=== PATIENT | female | born 1995 | race Hispanic/Latino ===

== ENCOUNTER 2019-05-26 20:14 | Inpatient (IN) | payer OTHER, SELFPAY ==
[2019-05-26 21:23] LABS: #Eosinphils 0.1 thou/uL (0.0-0.7); #Lymphocytes 1.2 thou/uL (1.20-3.40); #Monocytes 1.1 thou/uL (0.11-0.59); #Neutrophils 10.8 thou/uL (1.40-6.50); %Basophils 0.2 % (0.0-1.0); %Eosinophils 0.9 % (0.0-10.0); %Lymphocytes 9.3 % (21.0-51.0); %Monocytes 8.2 % (0.0-10.0); %Neutrophils 81.4 % (42.0-75.0); Hemoglobin 10.7 g/dL (12.0-16.0); Mean Corpuscular HGB CONC 34.6 g/dL (32.0-36.0); Mean Corpuscular Volume 92.3 fL (78.0-98.0); Mean Platelet Volume 7.9 fL (7.4-10.4); Platelet Count 196 thou/uL (130-400); RBC Distribution Width 12.1 % (11.5-14.5); Red Blood Cell (RBC) Count 3.35 mill/uL (4.20-5.40); White Blood Cell (WBC) Count 13.3 thou/uL (4.8-10.8)
--- NOTE | 2019-05-26 21:42 | RAD ---
EXAM: Single view of the chest HISTORY: Fever COMPARISON: None FINDINGS: Single view of the chest shows a normal sized cardiomediastinal silhouette. There is no antonette dence of consolidation, mass, or pleural effusion. The bones are unremarkable. IMPRESSION: No evidence of acute cardiopulmonary disease
[2019-05-26 21:48] LABS: ALT (SGPT) 22 U/L (8-55); AST (SGOT) 18 U/L (5-34); Alkaline Phosphatase 135 U/L (40-110); Anion Gap 13 mmol/L (10-20); BUN (Urea Nitrogen) 6 mg/dL (7.0-18.7); Bilirubin, Total 0.9 mg/dL (0.2-1.2); Calc. Creatinine Clearance 0 mL/min (70-130); Calcium 9.4 mg/dL (7.8-10.44); Carbon Dioxide 22 mmol/L (22-29); Chloride 101 mmol/L (98-107); Estimated GFR-MDRD Greater than 90; Globulin 3.7 g/dL (2.4-3.5); Glucose 90 mg/dL (70-105); Potassium 3.8 mmol/L (3.5-5.1); Protein, Total 7.7 g/dL (6.0-8.3); Sodium 132 mmol/L (136-145)
[2019-05-26] MEDS ORDERED: Acetaminophen 325 MG TAB ONE (21:55)
[2019-05-26 23:06] LABS: Bacteria/HPF 3+ HPF (None Seen); Bilirubin Negative (Negative); Blood, Urine Negative (Negative); Clarity Turbid (Clear); Glucose, Urine (Dipstick) Normal (Negative); Leukocyte 500 Leu/uL (Negative); Nitrite 1+ (Negative); Protein, Urine (Dipstick) Negative (Neg-Trace); Renal Epithelial 0-3 HPF (None Seen); Urobilinogen Normal mg/dL (Less than 2); WBC/HPF 21-50 HPF (0-3)
[2019-05-26 23:09] LABS: RBC/HPF 0-3 HPF (0-3)
[2019-05-26] MEDS ORDERED: cefTRIAXone\\ROCEPHIN 1 GM VIAL ONE (23:30)
--- NOTE | 2019-05-27 01:04 | PDOC.FPROB ---
FMR OB H&P: HPI - History of Present Illness Chief Complaint: fever Indentification: @ 23.3 WGA by 21.1 week sono History of Present Illness: The patient is a 23YO G? @ ~23.3 WGA by a 21.1 week US with no significant PMH who presented to the ED with a CC of subjective fever with associated N/V & myalgias/arthralgias that has been ongoing since Wednesday, 05/24. Also reports some associated central upper abdominal pain that she describes as aching in nature that comes and goes and was not present at the time of exam. Denies any vaginal bleeding, LOF, vaginal itching, abnormal discharge, dysuria, hematuria or isolated back pain. She denies any chest pain, SOB, cough, congestion, sore throat, or diarrhea. Denies any recent sick contacts or recent travel outside the country. Endorses regular movement. Primary Care Physician: Dr. Dean Worley FMR OB H&P: History - Past Medical History PMH: None - OB History OB History: primagravida - [facility] History [facility] [employer] History: No h/o STI & reports never having had a pap smear - Surgical History Sx History: None - Social History Social History: No TAD - Family History Family History: non-contributory FMR OB H&P: Medications - Current Allergies/Adverse Reactions: Allergies Allergy/AdvReac Type Severity Reaction Status Date / Time No Known Drug Allergies Allergy Unverified 05/27/19 02:11 FMR OB H&P: ROS - Review of Systems General: reports: fever/chills, weight/appetite/sleep changes Eyes: denies: eye pain, vision changes ENT: denies: nasal congestion, rhinorrhea, sore throat Cardiovascular: denies: chest pain, palpitation Respiratory: denies: cough, congestion Gastrointestinal: reports: abdominal pain, nausea, vomiting. denies: diarrhea Genitourinary (Female): denies: dysuria, hematuria, vaginal discharge, vaginal bleeding Musculoskeletal: reports: arthritis/arthralgias Neurologic: reports: headache. denies: syncope Integumentary: denies: rash, lesions FMR OB H&P: Vital Signs - Maternal Vital signs: BP: 113/60 HR: 101 RR:20 O2 sat: 100% on RA temp: 97.7F Wt: 53kg FMR OB H&P: Physical Exam - Physical Exam General: NAD, awake, alert and oriented HEENT: normocephalic and atraumatic, MMM, conjunctiva clear, grossly normal vision, grossly normal hearing, oropharynx clear Neck: supple, FROM Heart: normal S1/S2, no murmurs/rubs/gallops, pulses present, no edema, other ( tachycardic but regular rhythm) General: CTAB, no respiratory distress, good air movement, no rales/rhonchi, no wheezing Abdomen: gravid, non-tender, bowel sound present Musculoskeletal: normal gait and station, FROM in all four extremities Neurological: cranial nerves II through XII intact, sensation to pain,touch and proprioception grossly normal, no focal deficit Skin: no rash, good tugor Lymphatic: no unusual bruising or bleeding, no purpura, no petechia Psychiatric: intact recent and remote memory, good judgement and insight, normal mood and affect FMR OB H&P: Results - Labs Lab results: Laboratory Results - last 24 hr 05/26/19 05/26/19 05/26/19 21:15 21:15 21:15 WBC 13.3 H RBC 3.35 L Hgb 10.7 L Hct 31.0 L MCV 92.3 MCH 32.0 H MCHC 34.6 RDW 12.1 Plt Count 196 MPV 7.9 Neutrophils % 81.4 H Lymphocytes % 9.3 L Monocytes % 8.2 Eosinophils % 0.9 Basophils % 0.2 Neutrophils # 10.8 H Lymphocytes # 1.2 Monocytes # 1.1 H Eosinophils # 0.1 Basophils # 0.0 Sodium 132 L Potassium 3.8 Chloride 101 Carbon Dioxide 22 Anion Gap 13 BUN 6 L Creatinine 0.64 Estimated GFR (MDRD) Greater than 90 Glucose 90 Lactic Acid 0.9 Calcium 9.4 Total Bilirubin 0.9 AST 18 ALT 22 Alkaline Phosphatase 135 H Serum Total Protein 7.7 Albumin 4.0 Globulin 3.7 H Albumin/Globulin Ratio 1.1 L Urine Color Urine Clarity Urine pH Ur Specific [place] Urine Protein Urine Glucose (UA) Urine Ketones Urine Blood Urine Nitrite Urine Bilirubin Urine Urobilinogen Ur Leukocyte Esterase Urine RBC Urine WBC Ur Squamous Epith Cells Ur Renal Epithelial Cell Urine Bacteria 05/26/19 22:42 WBC RBC Hgb Hct MCV MCH MCHC RDW Plt Count MPV Neutrophils % Lymphocytes % Monocytes % Eosinophils % Basophils % Neutrophils # Lymphocytes # Monocytes # Eosinophils # Basophils # Sodium Potassium Chloride Carbon Dioxide Anion Gap BUN Creatinine Estimated GFR (MDRD) Glucose Lactic Acid Calcium Total Bilirubin AST ALT Alkaline Phosphatase Serum Total Protein Albumin Globulin Albumin/Globulin Ratio Urine Color Light-Yellow Urine Clarity Turbid A Urine pH 7.0 Ur Specific [place] 1.005 Urine Protein Negative Urine Glucose (UA) Normal Urine Ketones 10 A Urine Blood Negative Urine Nitrite 1+ A Urine Bilirubin Negative Urine Urobilinogen Normal Ur Leukocyte Esterase 500 A Urine RBC 0-3 Urine WBC 21-50 A Ur Squamous Epith Cells 7-10 A Ur Renal Epithelial Cell 0-3 A Urine Bacteria 3+ A FMR OB H&P: A/P - Problem List (1) Pyelonephritis affecting in second trimester Current Visit: Yes Status: Acute Code(s): O23.02 - INFECTIONS OF KIDNEY IN , SECOND TRIMESTER (2) Current Visit: Yes Status: Acute Qualifiers: Weeks of gestation: 23 weeks Qualified Code(s): Z3A.23 - 23 weeks gestation of Disposition: 23YO GP @ ~22.3 WGA by a 21.1 week sono who presented to the ED for evaluation for fever w/ associated N/V, myalgias & abdominal pain who was found to have suspected pyelonephritis. Complicated UTI vs. pyelonephritis: - Patient with a Tmax of 101F & tachycardic into the 110s upon arrival with a WBC of 13.3 and a UA significant for 1+ nitrite, 500 LE, 25-50 WBCs & 3+ bacteria. No CVA tenderness on exam but systemic symptoms along with UA make pyelonephritis a likely possibility. Urine & blood cultures pending as well as a procal. Initial lactate WNLs at 0.9. - s/p 650 mg PO tylenol and 1g Rocephin in the ED. Will continue rocephin pending urine culture & sensitivities. Continue tylenol PRN for pain/fever. - s/p 1L NS in the ED as well. Will continue mIVFs. - zofran PRN for N/V. Moderate dehydration: - Tachycardic with ketonuria on admission. s/p 1L NS in the ED. Will continue mIVFs w/ NS @ 100mL/hr on the floor until tolerating PO well. Will encourage adequate PO hydration as well. Hyponatremia: - Na of 132 on admission. Likely 2/2 decreased PO intake. Will continue to monitor. sIUP @ 22 WGA: - Continue PNVs. Anemia in : - Hgb 10.7 on admission. Will continue PNVs but also start PO iron. Dispo: Admit to [facility]/Women's unit for continued IV antibiotic therapy with plans to transition to appropriate PO therapy pending culture sensitivities. Discussion: Date/Time: 05/27/19103 This H&P was discussed with Dr. Camille Delacruz who agrees with the above documentation and plan. Addendum - Attending - Attending Attestation Date/Time: 05/27/19629 I personally evaluated the patient and discussed the management with Dr. Putnam. I agree with the History, Examination, Assessment and Plan documented above.
[2019-05-27] MEDS ORDERED: Lactated Ringer's 1,000 ML IV SCH (01:15)
[2019-05-27] MEDS ORDERED: Calcium Carbonate 500 MG ChewTAB PO PRN (01:27)
[2019-05-27] MEDS ORDERED: Acetaminophen 325 MG TAB PO PRN ×2 (01:27→07:27)
[2019-05-27] MEDS ORDERED: Ondansetron ODT 4 MG TAB PO PRN (01:27)
[2019-05-27] MEDS ORDERED: Ondansetron PF 4 MG/2 ML Vial IVP PRN (01:27)
[2019-05-27] MEDS ORDERED: Acetaminophen 650 MG Suppository PR PRN (01:27)
[2019-05-27] MEDS ORDERED: Polyethylene Glycol 3350 17 GM Packet PO PRN (01:34)
[2019-05-27] MEDS ORDERED: Docusate 100 MG CAP PO PRN (01:34)
[2019-05-27] MEDS: Sodium Chloride 0.9% 1,000 ML IV SCH ×2 (03:13→13:29)
[2019-05-27 03:34] VITALS: BMI 22.8
[2019-05-27 06:52] LABS: #Eosinphils 0.1 thou/uL (0.0-0.7); #Monocytes 1.4 thou/uL (0.11-0.59); #Neutrophils 7.9 thou/uL (1.40-6.50); %Basophils 0.2 % (0.0-1.0); %Eosinophils 0.8 % (0.0-10.0); %Lymphocytes 17.8 % (21.0-51.0); %Monocytes 12.1 % (0.0-10.0); %Neutrophils 69.1 % (42.0-75.0); Hemoglobin 9.8 g/dL (12.0-16.0); Mean Corpuscular HGB CONC 35.3 g/dL (32.0-36.0); Mean Corpuscular Volume 93.4 fL (78.0-98.0); Mean Platelet Volume 8.1 fL (7.4-10.4); Platelet Count 161 thou/uL (130-400); RBC Distribution Width 12.2 % (11.5-14.5); Red Blood Cell (RBC) Count 2.96 mill/uL (4.20-5.40); White Blood Cell (WBC) Count 11.4 thou/uL (4.8-10.8)
[2019-05-27 07:06] LABS: ALT (SGPT) 17 U/L (8-55); AST (SGOT) 15 U/L (5-34); Albumin 3.6 g/dL (3.5-5.0); Alkaline Phosphatase 121 U/L (40-110); Anion Gap 13 mmol/L (10-20); BUN (Urea Nitrogen) 4 mg/dL (7.0-18.7); Bilirubin, Total 0.7 mg/dL (0.2-1.2); Calc. Creatinine Clearance 133 mL/min (70-130); Calcium 8.9 mg/dL (7.8-10.44); Carbon Dioxide 20 mmol/L (22-29); Chloride 105 mmol/L (98-107); Estimated GFR-MDRD Greater than 90; Globulin 3.4 g/dL (2.4-3.5); Glucose 78 mg/dL (70-105); Potassium 3.8 mmol/L (3.5-5.1); Sodium 134 mmol/L (136-145)
[2019-05-27] MEDS: Acetaminophen 500 MG TAB PO PRN ×2 (08:15→17:07)
[2019-05-27] MEDS ORDERED: FLU VACC QS2019-20(6MOS UP)/PF 60 MCG/0.5 ML SYRINGE IM ONE (09:00)
[2019-05-27] MEDS: Prenatal Vitamin 1 TAB PO SCH (09:22)
[2019-05-27] MEDS: Ferrous Fumarate 324 MG TAB PO SCH (09:22)
[2019-05-27] MEDS ORDERED: Sodium Chloride 0.9% 10 ML ONE (22:52)
[2019-05-27] MEDS: cefTRIAXone\\ROCEPHIN 2 GM in Sodium Chloride 0.9% 100 ML IVPB SCH (23:08)
[2019-05-27] MEDS ORDERED: cefTRIAXone\\ROCEPHIN 1 GM in Sodium Chloride 0.9% 100 ML IVPB SCH (23:30)
[2019-05-28] MEDS: Sodium Chloride 0.9% 1,000 ML IV SCH ×2 (01:05→11:49)
[2019-05-28] MEDS: Acetaminophen 500 MG TAB PO PRN ×3 (04:14→21:00)
[2019-05-28] MEDS: Prenatal Vitamin 1 TAB PO SCH (08:31)
[2019-05-28] MEDS: Ferrous Fumarate 324 MG TAB PO SCH (08:33)
--- NOTE | 2019-05-28 15:33 | PDOC.EVN ---
Event Note - Event Note Event Note: OBGYN Slot Shift Supervisor: I was just called about this patient. I was asked about her discharge. This patient is not under OBGYN Hospitalist care. I have confirmed with Dr Worley that he is the physician taking care of this patient
[2019-05-28] MEDS ORDERED: Sodium Chloride 0.9% 10 ML ONE (22:49)
[2019-05-28] MEDS: cefTRIAXone\\ROCEPHIN 2 GM in Sodium Chloride 0.9% 100 ML IVPB SCH (22:56)
[2019-05-29] MEDS: Ferrous Fumarate 324 MG TAB PO SCH (08:46)
[2019-05-29] MEDS: Prenatal Vitamin 1 TAB PO SCH (08:46)
[2019-05-29] MEDS: Acetaminophen 500 MG TAB PO PRN (12:04)
[2019-05-29 12:16] VITALS: BP 116/59; TEMP 98.4
== END 2019-05-29 13:40 | disposition home or self-care (01) | DRG 832 ==
LOC: ERS 20:14 → 3SW 05-27 00:42
PROVIDERS: ADMIT Obstetrics & Gynecology; ATTEND Obstetrics & Gynecology
DX: O23.02 Infections of kidney in pregnancy, second trimester (principal); E87.1 Hypo-osmolality and hyponatremia; O99.282 Endocrine, nutritional and metabolic diseases complicating pregnancy, second trimester; O99.012 Anemia complicating pregnancy, second trimester; D64.9 Anemia, unspecified; E86.0 Dehydration; B96.1 Klebsiella pneumoniae [K. pneumoniae] as the cause of diseases classified elsewhere; Z3A.23 23 weeks gestation of pregnancy; Z23 Encounter for immunization
CPT/HCPCS: 36415; 71045; 80053; 81003; 81015; 83605; 84145; 85025; 87040; 87077; 87086; 87186; 87205; 87804; 93005; 96360; 96365; J0696; J3490

== ENCOUNTER 2019-08-08 14:26 | Day surgery (SDC) | payer OTHER ==
[2019-08-08 15:09] VITALS: BP 110/74; TEMP 98.2; BMI 23.3
[2019-08-08] MEDS ORDERED: hydrALAZINE 20 MG/ML VIAL SLOW IVP PRN (15:17)
--- NOTE | 2019-08-08 15:21 | PDOC.EVN ---
Event Note - Event Note Event Note: Patient seen at bedside. See dictation. at [address] Worley CC: Itching at hands/feet
--- NOTE | 2019-08-08 15:36 | PDOC.EVN ---
Event Note - Event Note Event Note: Possible cholestasis reviewed with the patient and family in german. I reviewed that tyhe lab will take a week so she must follow up as an outpatient to see the serum bile acid result. Low-Dose Benadryl prn for itching
--- NOTE | 2019-08-08 15:37 | HP ---
Labor and Delivery triage. TIME OF EVALUATION: 1500 hours. REASON FOR EVALUATION: The patient with itching and "abdominal discomfort." HISTORY OF PRESENT ILLNESS: In brief, this patient , a , sees Dr. Worley for care and states that for about a week, she has had some itching in her abdomen, hands , and feet and was concerned about cholestasis of as she looked that up on the line. She has no contractions. No rupture of membranes. No vaginal bleeding. She has good movement. She denies any other issues at this time. The patient's EDC is October 05. Her EGA is 31 weeks and 4 days. REVIEW OF SYSTEMS: Complete review of systems was checked and is otherwise negative unless specified in the HPI. PAST MEDICAL HISTORY: Negative. PAST SURGICAL HISTORY: Noncontributory. OB HISTORY: She is a G1, P0. ALLERGIES: NONE. PHYSICAL EXAMINATION: GENERAL: The patient is in no acute distress. VITAL SIGNS: Her blood pressure is 110/60, pulse is 103, temperature is 98, respirations are 18 and nonlabored. ABDOMEN: Soft and nontender, and there is no right upper quadrant pain on palpation. PELVIC: Deferred as there are no prelabor concerns or concern of rupture. monitor; the heart tones are in the 130s to 140s and they are reactive. There are no contractions on tocodynamometer. Interventions ordered. I have ordered a complete metabolic profile, a right upper quadrant ultrasound as well as bile acids, but those will not be back today. ASSESSMENT: This is a patient who is a 24-year-old, G1, P0, who is at 31 weeks and 4 days with a complaint of itching of her hands and feet suspicious for cholestasis. PLAN: 1. I will order a right upper quadrant ultrasound to rule out any concomitant gallstones or overt liver pathology. 2. Complete metabolic profile to be ordered. 3. We will order a bile acid from the serum. Those are send out, and we will not have those today. 4. Benadryl prn 5. Hep panel as screen (in case LFTs elevated, this will help the eval) Job ID: [id number] MTDD
[2019-08-08] MEDS ORDERED: diphenhydrAMINE 25 MG CAP PO SCH ×2 (15:45→16:30)
[2019-08-08 16:03] LABS: ALT (SGPT) 35 U/L (8-55); AST (SGOT) 23 U/L (5-34); Albumin 3.4 g/dL (3.5-5.0); Alkaline Phosphatase 274 U/L (40-110); Anion Gap 12 mmol/L (10-20); BUN (Urea Nitrogen) 5 mg/dL (7.0-18.7); Bilirubin, Total 0.9 mg/dL (0.2-1.2); Calc. Creatinine Clearance 145 mL/min (70-130); Calcium 9.1 mg/dL (7.8-10.44); Carbon Dioxide 24 mmol/L (22-29); Chloride 103 mmol/L (98-107); Estimated GFR-MDRD Greater than 90; Globulin 3.7 g/dL (2.4-3.5); Glucose 88 mg/dL (70-105); Potassium 3.9 mmol/L (3.5-5.1); Protein, Total 7.1 g/dL (6.0-8.3); Sodium 135 mmol/L (136-145)
[2019-08-08 16:31] LABS: HBCM Index 0.07 S/CO (0-0.79); HBSAg Index 0.26 S/CO (0-0.99); Hep A IgM AB Non-Reactive (NonReactive); Hep A IgM S/CO 0.33 S/CO (0-0.79); Hep B Surf Ag Non-Reactive S/CO (NonReactive); Hep C IgG Ab Non-Reactive (NonReactive); Hep C Index 0.03 S/CO (0-0.79); Hepatitis B Core IgM Abs Non-Reactive (NonReactive)
--- NOTE | 2019-08-08 16:50 | PDOC.EVN ---
Event Note - Event Note Event Note: CMP is ok Awaiting sono
--- NOTE | 2019-08-08 17:31 | ULT ---
ULTRASOUND ABDOMEN LIMITED: (RIGHT UPPER QUADRANT) DATE: 08/08/2019 HISTORY: 24-year-old female with right upper quadrant abdominal pain. FINDINGS: Gallbladder:Normal wall thickness. No pericholecystic fluid. On some of the images, there is an appea nahomy of a dependent layer of fine, very tiny gallstones on the order of less than a millimeters in size each. Alternatively, this could represent adjacent bowel gas. Common duct: 2 mm. Liver:Normal Pancreas:No sonographic abnormality identified. Right kidney:Mild dilation of right renal collecting system. IMPRESSION: 1. Question cholelithiasis. No signs of acute cholecystitis. 2. Mild right hydronephrosis.
--- NOTE | 2019-08-08 17:46 | PDOC.EVN ---
Event Note - Event Note Event Note: fatoumata reviews gallstones, but no obstruction. I gave her the information. Follow up serum bile acids in one week with her MD Low Fat Diet
== END 2019-08-08 18:00 | disposition home or self-care (01) ==
LOC: L&D/OP 14:26
PROVIDERS: ATTEND Family Medicine
DX: O99.613 Diseases of the digestive system complicating pregnancy, third trimester (principal); K80.20 Calculus of gallbladder without cholecystitis without obstruction; O99.89 Other specified diseases and conditions complicating pregnancy, childbirth and the puerperium; N13.30 Unspecified hydronephrosis; O26.893 Other specified pregnancy related conditions, third trimester; L29.9 Pruritus, unspecified; Z3A.31 31 weeks gestation of pregnancy
CPT/HCPCS: 36415; 76705; 80053; 80074; 82239; 99282; Q0163

== ENCOUNTER 2019-09-03 05:39 | Inpatient (IN) | payer MEDICAID, OTHER, SELFPAY ==
[2019-09-03 06:25] VITALS: BMI 23.7
[2019-09-03 06:49] LABS: Amnisure Test No Membranes Rupture (No Rupture)
[2019-09-03 06:50] LABS: Amnisure Internal Control QC ACCEPTABLE (ACCEPTABLE)
--- NOTE | 2019-09-03 08:13 | PRG ---
DATE OF SERVICE: 09/03/2019 PRIMARY OB: Dean Worley MD CHIEF COMPLAINT: Leakage of fluid. HISTORY OF PRESENT ILLNESS: The patient is a 24-year-old G1, P0 female with an intrauterine at 36 weeks and 6 days, who is presenting to Labor and Delivery today with complaints of a brown mucusy discharge this morning and was worried that maybe she had ruptured her membranes. She also reports she is having contractions that have been progressively worsening since about 2 o'clock this morning and do not seem to be lighting up. She has a history of cholestasis of with this and is scheduled for induction of labor tomorrow. The patient denies any recent illness, fever, fall, headache, chest pain, shortness of breath, nausea, vomiting. She has been experiencing constipation. Denies diarrhea. Denies any new rashes, hip problems, knee problems, or muscle weakness. Reports this mucusy brown discharge that sometimes has been yellow in the last couple of days. Denies urinary urgency or frequency. PAST MEDICAL HISTORY: Cholestasis of with this and anemia. PAST SURGICAL HISTORY: Negative. ALLERGIES: NO KNOWN DRUG ALLERGIES. MEDICATIONS: She is on vitamins, iron and medication for cholestasis of . She is not sure of the name. SOCIAL HISTORY: Denies drug, alcohol, or tobacco use. OB LABS: Unavailable at the time of dictation. REVIEW OF SYSTEMS: Per HPI. PHYSICAL EXAMINATION: VITAL SIGNS: Blood pressure is 118/75, heart rate of 90, and temperature 98.0. GENERAL: She appears to be in no acute distress. She is alert and oriented, cooperative and pleasant to interact with. HEENT: Head is normocephalic, atraumatic. LUNGS: Clear to auscultation bilaterally. HEART: Has a regular rate and rhythm. ABDOMEN: Gravid, soft. Contractions palpate hard. EXTREMITIES: Nontender, nonedematous. PELVIC: Cervical exam per nursing staff is fingertip, 40% effaced, and -3 station. heart tracing shows a baseline in the 130s with moderate long-term variability, positive 15 x 15 accelerations, no decelerations. Contractions about every 2 to 3 minutes apart. ASSESSMENT AND PLAN: The patient is a 24-year-old female with an intrauterine at 36 weeks and 6 days, is scheduled for induction of labor tomorrow for cholestasis of . She seems to be entering latent labor as her contraction pattern is very regular and firm on palpation. We will plan on keeping her here for 2 to 3 hours for re-evaluation and possible admission. Dr. Mcintosh will be the oncoming physician to make disposition. Job ID: [id number] MTDD
[2019-09-03] MEDS ORDERED: Promethazine HCl 25 MG/ML VIAL IM PRN ×2 (09:48→20:02)
[2019-09-03] MEDS ORDERED: Acetaminophen 500 MG TAB PO PRN (09:48)
[2019-09-03] MEDS ORDERED: Lidocaine 1% (PF) 30 ML VIAL SC PRN (09:48)
[2019-09-03] MEDS ORDERED: Ondansetron PF 4 MG/2 ML Vial IVP PRN ×2 (09:48→20:02)
[2019-09-03] MEDS ORDERED: hydrALAZINE 20 MG/ML VIAL SLOW IVP PRN (09:48)
[2019-09-03] MEDS ORDERED: Ibuprofen 800 MG TAB PO PRN (09:48)
--- NOTE | 2019-09-03 09:57 | PDOC.LDPN ---
Labor & Delivery Progress Note - Subjective Subjective: painful contractions - Objective Vital signs reviewed and normal: yes General: breathing through contractions Uterine fundus: non tender SVE: 9:30 AM Dilation: 2 Effacement: 25% Station: -3 FHT: category 1, variability present Buckman contractions every: q2-4 min -: Patient making cervical change and having regular, painful contractions every 2- 4 minutes. Scheduled for IOL tomorrow night for cholestasis of . Given early labor and history of cholestasis of , will admit patient to L&D for expectant management. Dr. Worley notified. GBS status unknown at this point in time. Will work to obtain GBS status and start antibiotics if necessary. Category I strip. Will continue to monitor and intervene as necessary. Addendum - Attending - Attending Attestation Date/Time: 09/03/19 0861 I personally evaluated the patient and discussed the management with Dr. Figueroa. 24 yo LAF at 36 6/7 weeks with cholestasis scheduled for induction tonight here with regular UCs and now with cervical change. FHTs are reassuring, UCs q 2-3 mins. I agree with the History, Examination, Assessment and Plan documented above. Dr. Worley notified of admit.
[2019-09-03] MEDS ORDERED: Bupivacaine 0.25% HCL 30 ML VIAL ONE (10:39)
[2019-09-03] MEDS: Lactated Ringer's 1,000 ML IV SCH ×3 (11:06→19:45)
[2019-09-03 12:19] LABS: Hemoglobin 11.4 g/dL (12.0-16.0); Mean Corpuscular HGB CONC 34.3 g/dL (32.0-36.0); Mean Corpuscular Hemoglobin 31.7 pg (27.0-31.0); Mean Corpuscular Volume 92.5 fL (78.0-98.0); Mean Platelet Volume 10.3 fL (7.4-10.4); Platelet Count 195 thou/uL (130-400); RBC Distribution Width 12.2 % (11.5-14.5); Red Blood Cell (RBC) Count 3.61 mill/uL (4.20-5.40); White Blood Cell (WBC) Count 13.1 thou/uL (4.8-10.8)
[2019-09-03 13:01] LABS: Syphilis Antibody Nonreactive (Nonreactive); Syphilis Antibody Index 0.03 S/CO (<1.00 Non-Reactive)
[2019-09-03 13:02] LABS: HBSAg Index 0.19 S/CO (0-0.99); Hep B Surf Ag Non-Reactive S/CO (NonReactive)
[2019-09-03] MEDS: Butorphanol Tartrate 1 MG/ML VIAL SLOW IVP PRN ×2 (13:44→16:30)
[2019-09-03] MEDS ORDERED: Fentanyl 4 mcg/Bup 0.1% Cadd 100 ML ONE (19:24)
[2019-09-03] MEDS ORDERED: Lactated Ringer's 500 ML IV PRN (20:02)
[2019-09-03] MEDS ORDERED: diphenhydrAMINE 50 MG/ML VIAL IVP PRN (20:02)
[2019-09-03] MEDS ORDERED: Naloxone HCl 0.4 mg/ml Vial IVP PRN ×2 (20:02)
[2019-09-03] MEDS ORDERED: ePHEDrine/0.9% NaCl/PF SYRINGE 50 mg/10 ml SLOW IVP PRN (20:02)
[2019-09-03] MEDS ORDERED: Fentanyl 4 mcg/Bupivacaine 0.1% Cassette 100 ML EPIDURAL SCH (20:15)
[2019-09-03] MEDS ORDERED: Communication Order-Pharmacy FS SCH (20:15)
[2019-09-04] MEDS ORDERED: Fentanyl 4 mcg/Bup 0.1% Cadd 100 ML ONE (02:55)
[2019-09-04] MEDS: Lactated Ringer's 1,000 ML IV SCH (03:02)
[2019-09-04] MEDS ORDERED: NS w/ Oxytocin 10 units 500 ML ONE (03:46)
[2019-09-04] MEDS ORDERED: NS w/ Oxytocin 10 units 500 ML IV SCH (04:00)
[2019-09-04] MEDS: NS / Oxytocin 40 units/1000ml 1,000 ML IV PRN ×2 (08:46→09:35)
[2019-09-04] MEDS ORDERED: Methylergonovine 0.2 MG/ML VIAL ONE (08:50)
[2019-09-04] MEDS ORDERED: Carboprost 250 MCG/ML AMP ONE ×2 (08:56→09:14)
[2019-09-04] MEDS ORDERED: Misoprostol 200 MCG TAB ONE (08:56)
[2019-09-04] MEDS ORDERED: Carboprost 250 MCG/ML AMP IM SCH (09:00)
[2019-09-04] MEDS ORDERED: Misoprostol 200 MCG TAB PO ONE ×2 (09:00→15:00)
[2019-09-04] MEDS ORDERED: Methylergonovine 0.2 MG/ML VIAL IM SCH (09:00)
[2019-09-04] MEDS: Acetaminophen 325 MG TAB PO PRN ×2 (10:16→17:43)
[2019-09-04] MEDS ORDERED: Diphenoxylate HCl/Atropine Tablet PO SCH (10:30)
[2019-09-04] MEDS ORDERED: diphenhydrAMINE 25 MG CAP PO PRN (12:56)
[2019-09-04] MEDS ORDERED: Promethazine HCl 25 MG/ML VIAL IM PRN (12:56)
[2019-09-04] MEDS ORDERED: Benzocaine-Menthol 82.5 ML CAN TOP PRN (12:56)
[2019-09-04] MEDS ORDERED: Lanolin Ointment 7 GM TUBE TOP PRN (12:56)
[2019-09-04] MEDS ORDERED: Milk Of Magnesia 30 ML UDCUP PO PRN (12:56)
[2019-09-04] MEDS ORDERED: hydrALAZINE 20 MG/ML VIAL SLOW IVP PRN (12:56)
[2019-09-04] MEDS ORDERED: Ondansetron PF 4 MG/2 ML Vial IVP PRN (12:56)
[2019-09-04] MEDS ORDERED: Bisacodyl 10 MG SUPP PR PRN (12:56)
[2019-09-04] MEDS ORDERED: Adacel (T-DAP) 0.5 ML SYRINGE IM ONE (12:56)
[2019-09-04] MEDS ORDERED: HYDROcodone/Acetaminophen 5/325 mg Tablet PO PRN (12:56)
[2019-09-04] MEDS ORDERED: NS / Oxytocin 40 units/1000ml 1,000 ML IV SCH (12:56)
[2019-09-04] MEDS: HYDROcodone/Acetaminophen 5/325 mg Tablet PO PRN (13:48)
[2019-09-04] MEDS: Ibuprofen 800 MG TAB PO SCH ×2 (13:48→21:41)
[2019-09-04] MEDS ORDERED: Diphenoxylate HCl/Atropine Tablet PO PRN (16:00)
[2019-09-04] MEDS: Ferrous Sulfate 325 MG TAB PO SCH (17:44)
[2019-09-04] MEDS: Docusate Calcium (SURFAK) 240 MG CAP PO SCH (21:41)
[2019-09-05] MEDS: Ibuprofen 800 MG TAB PO SCH ×3 (05:00→22:36)
[2019-09-05 06:24] LABS: Mean Corpuscular HGB CONC 34.4 g/dL (32.0-36.0); Mean Corpuscular Hemoglobin 32.4 pg (27.0-31.0); Mean Corpuscular Volume 94.3 fL (78.0-98.0); Mean Platelet Volume 9.3 fL (7.4-10.4); Platelet Count 133 thou/uL (130-400); RBC Distribution Width 12.2 % (11.5-14.5); Red Blood Cell (RBC) Count 2.46 mill/uL (4.20-5.40); White Blood Cell (WBC) Count 16.4 thou/uL (4.8-10.8)
[2019-09-05] MEDS: Ferrous Sulfate 325 MG TAB PO SCH ×2 (09:16→18:12)
[2019-09-05] MEDS: Prenatal Vitamin 1 TAB PO SCH (09:17)
[2019-09-05] MEDS: Docusate Calcium (SURFAK) 240 MG CAP PO SCH ×2 (09:17→22:36)
[2019-09-05] MEDS: HYDROcodone/Acetaminophen 5/325 mg Tablet PO PRN (22:37)
[2019-09-06 04:50] VITALS: TEMP 97.6
[2019-09-06] MEDS: Ibuprofen 800 MG TAB PO SCH ×2 (05:10→13:51)
[2019-09-06] MEDS: Ferrous Sulfate 325 MG TAB PO SCH ×2 (09:04→16:00)
[2019-09-06] MEDS: Docusate Calcium (SURFAK) 240 MG CAP PO SCH (09:04)
[2019-09-06] MEDS: Prenatal Vitamin 1 TAB PO SCH (09:05)
[2019-09-06 09:11] VITALS: BP 99/56
[2019-09-06] MEDS: HYDROcodone/Acetaminophen 5/325 mg Tablet PO PRN (11:41)
== END 2019-09-06 17:45 | disposition home or self-care (01) | DRG 805 ==
LOC: L&D/OP 05:39 → L&D 05:40 → 3SW 09-04 13:35
PROVIDERS: ADMIT Family Medicine; ATTEND Family Medicine
PROC: 10E0XZZ Delivery of Products of Conception, External Approach (ICD-10-PCS; principal; 2019-09-03)
PROC: 10907ZC Drainage of Amniotic Fluid, Therapeutic from Products of Conception, Via Natural or Artificial Opening (ICD-10-PCS; 2019-09-03)
PROC: 0W8NXZZ Division of Female Perineum, External Approach (ICD-10-PCS; 2019-09-03)
PROC: 3E0P7VZ Introduction of Hormone into Female Reproductive, Via Natural or Artificial Opening (ICD-10-PCS; 2019-09-03)
PROC: 3E033VJ Introduction of Other Hormone into Peripheral Vein, Percutaneous Approach (ICD-10-PCS; 2019-09-03)
DX: O26.62 Liver and biliary tract disorders in childbirth (principal); K83.1 Obstruction of bile duct; Z37.0 Single live birth; O72.1 Other immediate postpartum hemorrhage; O99.02 Anemia complicating childbirth; D64.9 Anemia, unspecified; O69.81X0 Labor and delivery complicated by cord around neck, without compression, not applicable or unspecified; Z3A.36 36 weeks gestation of pregnancy
CPT/HCPCS: 36415; 51702; 84112; 85027; 86780; 86850; 86900; 86901; 87340; 99285; J0595; J2210; J2405; J2590; J3490; S0020